=== PATIENT | female | born 1935 | race Caucasian/White ===

== ENCOUNTER 2016-08-02 12:46 | Emergency (ER) | payer MEDICARE, OTHER ==
[~2016-08-02] VITALS: Ht 162.6 cm; Wt 80.9 kg
[2016-08-02 12:57] VITALS: PULSE 77; RESP 12; O2SAT 98
[2016-08-02 14:18] LABS: BASOPHILS % (AUTO) 0.9 % (0-3); EOSINOPHILS % (AUTO) 2.3 % (0-5); MONOCYTES % (AUTO) 14.8 % (4-12); Mean Corpuscular Hemoglobin 30.6 pg (27.0-35.0); Mean Corpuscular Volume 94.2 fL (81-100); NEUTROPHILS % (AUTO) 57.9 % (40-74); Platelet Count 150 bil/L (150-400)
--- NOTE | 2016-08-02 15:02 | ED.REPORT ---
HPI-General Illness Date of Service August 02, 2016 ED Provider: The patient is an 80 year old female with history of diabetes mellitus type II, hypertension, and atrial fibrillation on Warfarin, who was sent to the emergency department by Dr. Cross for elevated potassium. She had a routine lab test on Sunday and was contacted today about the results. The patient has no symptoms or complaints. She specifically denies chest pain, shortness of breath, vomiting, bloody stools or melena. Nursing Notes Stated Complaint: HIGH POTASSIUM LEVEL Chief Complaint: General Complaint Nursing Notes Reviewed: Yes Allergies: Coded Allergies: No Known Allergies (Unverified , 08/02/16) Scheduled Hydralazine (Hydralazine) 25 Mg Tablet 25 MG PO TID General Time Seen by MD: 14:59 Chief Complaint Other (abnormal labs) Hx Obtained From: Patient Arrived By: Walk-in Sudden in Onset?: No Onset Occurred: Onset unknown Symptom Duration: Duration unknown Severity: Current: No pain currently Severity: Maximum: No pain Recent Healthcare: No recent hospitalization, Recent doctor visit Similar Sx Previous: No Past Medical History Past Medical History Reports: Diabetes mellitus, Hypertension Reports: Atrial fibrillation Family History Noncontributory Smoking History Unknown if Ever Smoker Social History Other Social History: Local resident Ambulatory Status Independent Review of Systems +elevated potassium Full Review of Systems Respiratory: Denies: Shortness of breath Cardiovascular: Denies: Chest pain GI: Denies: Bloody/tarry stool, Hematochezia, Melena, Vomiting Complete sys rev & neg: except as marked. Physical Exam Vital Signs Vital Signs Date Time Temp Pulse Resp B/P Pulse Ox O2 Delivery O2 Flow Rate FiO2 08/02/16 16:20 70 16 138/78 97 Room Air 08/02/16 12:57 35.9 77 12 98 Room Air Initial VS: Reviewed Head / Eyes: Atraumatic, Normocephalic, PERRL ENT: Mucous membranes moist, Conjunctiva normal, No scleral icterus Neck: Supple, Non-tender, Full range of motion Respiratory: Breath sounds normal, Clear to auscultation, No respiratory distress Abdomen / GI: Soft, Non-tender, No guarding, No rebound, No distention Lymphatic: No lymphadenopathy Extremities: Vascular intact, Neuro intact, No swelling, No tenderness Skin: Warm, Dry, No cyanosis Neurologic: Alert, Oriented, Nonfocal Psychiatric: Mood/affect normal, Behavior normal, Normal thought content General/Constitutional: Awake, Alert, Cooperative Cardiovascular: Heart rate NL, Regular rhythm, Heart sounds NL, No gallop, No murmurs, No rubs, Cap refill not delayed, Peripheral circulation NL Interpretation & Diagnostics Lab Results Interpretation Result Diagram: 08/02/16 1358 08/02/16 1358 Test 08/02/16 13:58 08/02/16 14:31 White Blood Count 3.4th/mm3 (3.8-10.1) Red Blood Count 3.59mil/mm3 (3.90-5.20) Hemoglobin 11.0g/dL (12.0-15.6) Hematocrit 33.8% (35.0-46.0) Mean Corpuscular Volume 94.2fL (81-100) Mean Corpuscular Hemoglobin 30.6pg (27.0-35.0) Mean Corpuscular Hemoglobin Concent 32.5% (32.0-37.0) Red Cell Distribution Width 16.0% (12.3-15.4) Platelet Count 150bil/L (150-400) Neutrophils (%) (Auto) 57.9% (40-74) Lymphocytes (%) (Auto) 23.8% (14-46) Monocytes (%) (Auto) 14.8% (4-12) Eosinophils (%) (Auto) 2.3% (0-5) Basophils (%) (Auto) 0.9% (0-3) Sodium Level 140mEq/L (134-144) Potassium Level 5.6mEq/L (3.5-5.2) Chloride Level 105mEq/L (97-108) Carbon Dioxide Level 22mmol/L (18-29) Blood Urea Nitrogen 60mg/dL (8-27) Creatinine 1.52mg/dL (0.57-1.00) Estimat Glomerular Filtration Rate 47mL/min (>59) Glucose Level 115mg/dL (60-99) Calcium Level 9.9mg/dL (8.5-10.1) Magnesium Level 2.1mg/dL (1.6-2.6) Total Bilirubin 0.3mg/dL (0.0-1.2) Aspartate Amino Transf (AST/SGOT) 27U/L (0-50) Alanine Aminotransferase (ALT/SGPT) 28U/L (0-32) Alkaline Phosphatase 58U/L (25-165) Total Protein 7.1g/dL (6.4-8.4) Albumin 4.0g/dL (3.4-5.0) Hold Urine Received (Received) ECG Interpretation ECG Interpretation: Atrial fibrillation RBBB Single PVC No peaked T waves Time: 14:28 Interpreted by: ED physician Re-Eval/Medical Decision Source of Hx: Old records, Private physician Time of Eval: 15:49 Re-Evaluation/Progress Note: Discussed results, diagnosis, and plan for discharge. All questions were addressed. 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 Her baseline creatinine is 1.2. He would like her started on hydralazine 25 mg TID for one week. If she gains more than 3 pounds in 3 days then resume lasix Counseled Regarding: Diagnosis, Lab results, Need for follow-up, When/why to return to ED Discharge & Departure Primary Impression: Hyperkalemia Disposition: Home Discharge Condition All VS Reviewed: Yes Condition: Stable Additional Instructions: Thank you for entrusting us with your care today. Your potassium level has improved. I spoke with Dr. Cross who would like you to hold your enalapril and start taking hydralazine 25 mg three times a day for 1 week. If you gain more than 3 pounds in 3 days then you should resume taking Lasix. You also need to followup with your primary care provider in the next few days for re-evaluation. You will need to have repeat labs in 5 days. Return to the emergency department if you develop chest pain, palpitations, shortness of breath, lightheadedness, dizziness or any other new or concerning symptoms. Referrals: NOPCP (PCP) Scribe Attestation Portions of this note were transcribed by Columba Romero. I, Dr. Mendoza personally performed the history, physical exam and medical decision-making; I reviewed and confirmed the accuracy of the information in the transcribed note. Signed by: Kelby Rees, 08/02/2016 at 1555. Joey Mendoaz DO August 02, 2016 15:02 Columba Romero August 02, 2016 15:12
[2016-08-02 15:03] LABS: Magnesium 2.1 mg/dL (1.6-2.6)
[2016-08-02] MEDS ORDERED: 0.9% Sodium Chloride 1,000 ML IV ONE (15:05)
[2016-08-02] MEDS ORDERED: HYDR-3939 PO (15:49)
[2016-08-02 16:20] VITALS: BP 138/78; PULSE 70; RESP 16; O2SAT 97
== END 2016-08-02 16:05 | disposition home or self-care (01) ==
LOC: SED 12:46
DX: E87.5 Hyperkalemia (principal); E11.9 Type 2 diabetes mellitus without complications; I10 Essential (primary) hypertension; Z79.01 Long term (current) use of anticoagulants
CPT/HCPCS: 36415; 80053; 83735; 85025; 93005; 96360; 99284; J7030